=== PATIENT | male | born 1955 | race African-American/Black ===

== ENCOUNTER 2018-10-19 13:03 | Inpatient (IN) | payer OTHER ==
[2018-10-19] VITALS (21 sets, daily range): BP systolic 60–150; BP diastolic 15–95
[~2018-10-19] VITALS: Ht 177.8 cm; Wt 104.3 kg
--- NOTE | 2018-10-19 13:05 | NUR ---
ED Nurse Note: Pt BIBA from home due to cardiac arrest, pt was found unconscious at home with agonal breathing and no pulse. Per [employer] solutions architect, Epinephrine x1 given. CPR started @ 1245 in [facility] ER, 4 dosages of Epinephrine given per ERMD Dr. Yepez. Intubation @ 1258, size 7.5, 27 at lips. Pt on mechanical ventilator setting: A/C mode, [place] volumne 600, PEEP 5, FiO2 100% Central Line triple lumen inserted @1322 on R femoral. Site intact, dry. @1315 BP 58/27, weak pulses felt by RT and ERMD.
[2018-10-19] MEDS ORDERED: ZETIA10 MG ORAL (13:07)
[2018-10-19] MEDS ORDERED: SIMVASTATIN5 MG ORAL (13:07)
[2018-10-19] MEDS ORDERED: PROTONIX40 MG ORAL (13:07)
[2018-10-19] MEDS ORDERED: MULTIVITAMINS1 EAC2 ORAL (13:07)
[2018-10-19] MEDS ORDERED: COUMADIN1 MG ORAL (13:07)
[2018-10-19] MEDS ORDERED: ZANTAC150 MG ORAL (13:07)
[2018-10-19] MEDS ORDERED: ASPIRIN81 MG ORAL (13:07)
[2018-10-19] MEDS ORDERED: ROBAXIN500 MG PO (13:07)
[2018-10-19] MEDS ORDERED: Levophed 4mg/4mL Inj IV ONE (13:12)
[2018-10-19] MEDS ORDERED: Cefepime HCl 2 GM in NS 110 ML IV SCH (13:45)
[2018-10-19] MEDS ORDERED: Sodium Chloride 3,100 ML IVLG ONE (13:45)
[2018-10-19 13:47] LABS: HEMATOCRIT 23.3 % (42.0-52.0); MEAN CORPUSCULAR VOLUME 77 FL (80-99); PLATELET COUNT 174 K/UL (150-450); RED BLOOD COUNT 3.03 M/UL (4.70-6.10); RED CELL DISTRIBUTION WIDTH 15.4 % (11.6-14.8); WHITE BLOOD COUNT 10.9 K/UL (4.8-10.8)
[2018-10-19 13:49] LABS: HEMOGLOBIN 6.9 G/DL (14.2-18.0)
--- NOTE | 2018-10-19 13:55 | NUR ---
ED Nurse Note: Levophed drip standard dose started at 2mcg/min, administered and tiltrated per protocol.
[2018-10-19 14:12] LABS: INR 1.4 (0.9-1.1)
--- NOTE | 2018-10-19 14:14 | NUR ---
ED Nurse Note: BP 60/15, Levophed increased to 10mcg/min, ERMD aware.
[2018-10-19 14:16] LABS: ALANINE AMINOTRANSFERASE 72 U/L (12-78); ALBUMIN/GLOBULIN RATIO 0.6 (1.0-2.7); ALKALINE PHOSPHATASE 133 U/L (46-116); ANION GAP 31 mmol/L (5-15); ASPARTATE AMINO TRANSFERASE 264 U/L (15-37); BILIRUBIN,TOTAL 0.4 MG/DL (0.2-1.0); BLOOD UREA NITROGEN 18 mg/dL (7-18); CALCIUM 9.4 MG/DL (8.5-10.1); CHLORIDE 111 MMOL/L (98-107); CKMB < 0.5 NG/ML (0.0-3.6); CREATINE KINASE 114 U/L (26-308); CREATININE 2.2 MG/DL (0.55-1.30); POTASSIUM 5.5 MMOL/L (3.5-5.1); SODIUM 149 MMOL/L (136-145)
--- NOTE | 2018-10-19 14:29 | Diagnostic Imaging Report ---
Indication: Dyspnea Comparison: None A single view chest radiograph was obtained. Findings: The NG tube is in the mid to distal esophagus and should either be removed or advanced much further. Endotracheal tube is 3 cm above the анна in good position. Mild basal atelectasis noted with low lung volumes. Cardiomegaly is present and mild. IMPRESSION: Nasogastric tube requires repositioning. Mild basal atelectasis
[2018-10-19 14:30] LABS: CARBON DIOXIDE 6 MMOL/L (21-32)
--- NOTE | 2018-10-19 14:30 | Emergency Room Report ---
History of Present Illness General Chief Complaint: CPR Source: EMS Present Illness HPI 63yo M Is brought in by EMS as a cardiac arrest, when they were called to his private home, they reported that he himself called and was complaining shortness of breath, when they arrived he was sitting in a chair barely awake minimally responsive, when they lay him down to assess and he was pulseless in PE a arrest, they initiated CPR, attempted I'll placement in the left tibia, and placed a Joshua airway and brought the patient in, they reported that they had returned was found to circulation with epi X2, and this is other brought him in. He did not have a pulse on our first check, but did have a narrow complex tachyarrhythmia on the monitor so we resumed CPR. Allergies: Coded Allergies: UNABLE TO ASSESS (Unverified , 10/19/18) pt full arrest no family present Patient History Limited by: medical condition Past Medical History: see triage record, unable to obtain Reviewed Nursing Documentation: PMH: Agreed; PSxH: Agreed Nursing Documentation-PMH Past Medical History: Deferred Review of Systems All Other Systems: limited - patient unresponsive gcs 3t Physical Exam Vital Signs Date Time Temp Pulse Resp B/P (MAP) Pulse Ox O2 Delivery O2 Flow Rate FiO2 10/19/18 12:57 0 0 0 Ambu-Bag 100 10/19/18 13:54 65/53 Sp02 EP Interpretation: reviewed, abnormal General Appearance: severe distress, other - unresponsive gcs 3t Head: normocephalic, atraumatic Eyes: bilateral eye other - 3mm poorly reactive bilateral pupils ENT: normal pharynx, uvula midline, moist mucus membranes, other - joshua airway in oropharynx Neck: normal inspection Respiratory: other - with BVM good chest rise, chest symmetrical, palpation of chest normal Cardiovascular #1: no edema, tachycardia Cardiovascular #2: 1+ carotid (R), 1+ carotid (L) Gastrointestinal: distended - and firm in epigastic region Rectal: deferred Genitourinary: normal inspection, penis normal, scrotum normal Musculoskeletal: other - L knee with effusion 2/2 IO line inserted into knee Neurologic: other - gcs 3T Skin: warm/dry Lymphatic: normal inspection Procedures Critical Care Time Critical Care Time 55 mins of critical care time excluding all procedures Central Line Central Line : Consent: Emergent Central Line Lumen: triple Maximal Sterile Barrier Tech: yes cap, yes mask, yes sterile gown, yes sterile gloves, yes large sterile sheet No Max Barrier Tech Because: emergency insertion Central Line Postion: femoral (R) Complications: none Central Line Post Position: sutured, good blood return Attempts: Other - 2 Patient Tolerated: Well Complications: None Progress Semi-sterile technique used due to patient being an active cardiac arrest, initial line placed, however removed afterwards due to brisk return of blood, concern for possible arterial placement, but ultrasound confirmed likely normal placement, but first headache of safety, this line was removed and another one placed in the same location without difficulty. Do not suspect line was however placed in the artery, no hematoma formation, and no arterial pulsatile blood return. CPR/Code Blue CPR/Code Blue Narrative Patient came in pulseless, apparently had [place] in the field, but this pulses 1 on initial check, but had a narrow complex tachyarrhythmia, we gave her IV fluids, resume CPR, the I'll line was placed in the joint so we placed a peripheral IV, and gave epi, patient had return of spontaneous ablation again here, remained in a narrow complex tachycardia arrhythmia, I place a central line, intubated the patient as he only had a Joshua airway, and it seems that once we are able to intubate the patient patient maintained pulses rather easily , and OG tube was placed to try to decompress the distended abdomen, and it did somewhat help, patient was placed on Levophed, IV fluids and then dopamine. Intubation Intubation : Consent: Emergent Intubation Method: orotracheal Tube Size (cm): 7.5 Breath Sounds after Intubation: equal Intubation Complications: no complications Attempts: One Patient Tolerated: Well Complications: None Medical Decision Making Diagnostic Impression: Primary Impression: For cardiopulmonary resuscitation ER Course Patient came in for what I suspect was a respiratory arrest primarily, since he is the one who called EMS and 911 and apparently his only complaint was shortness of breath, but this was to prior to EMS arrival. Had returned Wednesday circulation once I was able to intubate the patient and remove his Joshua airway, I suspect this is a primary respiratory code but there is noted to be 100% certain, his EKG showed a narrow complex rhythm the entire time, EKG showed A. fib, patient has medication bottles which were brought by EMS, which showed he is on medications for hypertension, high cholesterol, muscle relaxants , Cipro and Bactrim, and warfarin. Laboratory evaluation revealed a hemoglobin of 6.9, INR 1.4, and a severe metabolic acidosis, patient was placed on bicarbonate drip in addition to the dopamine, Levophed, broad-spectrum antibiotics. EKG Diagnostic Results EKG Time: 13:10 EP Interpretation: afib with rvr Rate: tachycardiac Rhythm: other - afib ST Segments: no acute changes ASA given to the pt in ED: No Rhythm Strip Diag. Results Rhythm Strip Time: 14:29 EP Interpretation: yes Rate: 119 Rhythm: no PVC's, other - afib Chest X-Ray Diagnostic Results Chest X-Ray Diagnostic Results : Chest X-Ray Ordered: Yes # of Views/Limited/Complete: 1 View Indication: Shortness of Breath EP Interpretation: Yes Interpretation: no consolidation, no effusion, no pneumothorax, no acute cardiopulmonary disease, other - ETT in place Impression: Other - ETT in place Electronically Signed by: Evelyn Calderon MD Last Vital Signs Date Time Temp Pulse Resp B/P (MAP) Pulse Ox O2 Delivery O2 Flow Rate FiO2 10/19/18 13:54 65/53 10/19/18 12:57 0 0 0 Ambu-Bag 100 Disposition: ADMITTED INPATIENT Condition: Critical Referrals: [facility]ERR[facility] (PCP) EVELYN CALDERON M.D Oct 19, 2018 14:30
[2018-10-19] MEDS ORDERED: DOPamine 400mg/250ml 250 ML IV SCH (14:45)
[2018-10-19] MEDS ORDERED: Sodium Bicarbonate 50ml Carp IV ONE (14:45)
--- NOTE | 2018-10-19 14:45 | NUR ---
ED Nurse Note: Dopamine drip started at 2mcg/kg/min on R Femoral IV site.
[2018-10-19] MEDS ORDERED: Sodium Bicarbonate 150 ML in D5W 1000ml 1,000 ML IV ONE (15:00)
--- NOTE | 2018-10-19 15:20 | NUR ---
NURSE NOTES: received pt from Abigail, ER nurse. Patient is obtunded, no response to deep pain or voice. Pin point pupils, non reactive to light. ETT to vent, 7.5/25cm at lip line, AC 22, TV 600, FIo2 100%, PEEP+5. Spo2 88%, RR 22. Right femoral TLC running levophed 30mcg/kg/hr, dopamine 2mcg/kg/hr, NaHCO3@250cc/hr. NGT in left nare, keep to advance per cxr results. will advance ngt and get another cxr. RAC 18G. Skin intact. Extremeties are cold to touch. 95.1 rectal temp. BP 95/63, HR 113. paged dr. barney for admission orders.
--- NOTE | 2018-10-19 15:25 | NUR ---
ED Nurse Note: Pt transfered to ICU to room 246-K on [facility] with portable oxygen, emergency box and belongings accompanied by RN, outer diameter technician and RT. No sign of acute distress
[2018-10-19] MEDS ORDERED: ASPIRIN EC325 MG ORAL (15:37)
[2018-10-19] MEDS ORDERED: Vasopressin 100 UNITS in NS 95 ML IV SCH (17:00)
[2018-10-19] MEDS ORDERED: Pantoprazole Inj IVP SCH (18:00)
[2018-10-19] MEDS ORDERED: Insulin Human Regular 100units/ml 3ml IV SCH (18:00)
[2018-10-19] MEDS ORDERED: Sodium Polystyrene Sulfonate Enema RECTAL SCH (18:00)
--- NOTE | 2018-10-19 18:02 | History & Physical ---
History and Physical History & Physicial History and Physical HPI Patient is a 63yo male admitted in full cardiac arrest from the community. He has a history of Congestive Heart Failure, Atrial Fibrillation, Hypertension, Hyperlipidemia. Prior to arrest was complaining shortness of breath, noted by EMT to be pulseless in PEA arrest, Coded in ED, Intubated, central line inerted , NGT in mid esophagus - removed in ICU and a new NGT inserted. On high dose pressors, noted to be significantly anemia, s/p TFN in ED. Allergies: UNABLE TO ASSESS Past Medical History: Congestive Heart Failure, Atrial Fibrillation, Hypertension, Hyperlipidemia Physical Exam Vital Signs Date Time Temp Pulse Resp B/P (MAP) Pulse Ox O2 Delivery O2 Flow Rate FiO2 10/19/18 12:57 0 0 0 Ambu-Bag 100 10/19/18 13:54 65/53 General Appearance: sedated on ventilator - unresponsive Head: normocephalic, atraumatic Eyes: bilateral eye other - 3mm poorly reactive bilateral pupils, divergent gaze ENT: normal pharynx, uvula midline, moist mucus membranes, ETT Neck: normal inspection Respiratory: other - with BVM good chest rise, chest symmetrical, palpation of chest normal Cardiovascular: HS1, HS2, irregular, no edema, tachycardia Gastrointestinal: mild distention - and firm in epigastic region Rectal: deferred Genitourinary: normal inspection Musculoskeletal: some swelling L knee Neurologic: other - gcs 3T Skin: warm/dry Lymphatic: normal inspection Impression: Cardiac Arrest - community Severe Hypotension Hyperkalemia BRAVO Possible Sepsis Anemia Congestive Heart Failure Atrial Fibrillation Hypertension Hyperlipidemia Plan IV Pressors, MAP >65 IV Fluids TFN PRN Repeat CBC/BMP/Coags after TFN IV Insulin and D50 Kayexalate [place] Protonix Monitor Labs NGT low intermittent suction IV Antibiotics - Cefepime and Vancomycin Cardiology Consultation Renal Consultation Neurology Consultation AC, VC, increase RR 22.min, repeat ABG DNAR, d/w patients CXR/KUB to asess NGT Poor Prognosis EKG Afib with rvr Rate: tachycardiac Rhythm: other - afib ST Segments: no acute changes Chest X-Ray: no consolidation, basal atelectasis, no effusion, no pneumothorax , no acute cardiopulmonary disease, other - ETT in place Impression: Other - ETT in place Benjie Thomas MD Oct 19, 2018 18:02
--- NOTE | 2018-10-19 18:07 | NUR ---
CASE MANAGEMENT: REVIEW 63/M BIBA FROM HOME CC: SOB . CPR SI: FULL CARDIAC ARREST HR 0 RR 0 O2 SAT 0 AMBU-BAG 100 HR 154 BP 65/53 SAT 100% MECH VENT FIO2 100 H/H 6.9/23.3 K 5.5 ABG: PH <6.716 PCO2 34.8 PO2 228.9 IS: LEVOPHED IV X1 NS IVF BOLUS X1 SODIUM BICARB IV X1 PATIENT ADMITTED TO ICU 10/19/2018 DCP: PATIENT IS FROM HOME
--- NOTE | 2018-10-19 18:35 | NUR ---
NURSE NOTES: Patient went into bradycardia then into asystole. No palpable pulse or by doppler. Code blue was called. Patient reached ROSC at 17:29, See code paper for details. then went into bradycardia again at 18:46. , Mari Do was informed and requested to change code status to DNR. DNR form signed. Patient went into asystole. Dr. Dow at bedside to pronounce time of at 181.
--- NOTE | 2018-10-19 19:28 | NUR ---
HAND-OFF: Report given to PRECIOUS [place].
[2018-10-19] MEDS ORDERED: Sodium Bicarbonate 8.4% 50ml Inj ONE (20:31)
--- NOTE | 2018-10-19 21:52 | Emergency Room Report ---
History of Present Illness General Chief Complaint: CPR Source: Significant Other Present Illness Allergies: Coded Allergies: UNABLE TO ASSESS (Unverified , 10/19/18) pt full arrest no family present Nursing Documentation-[facility] Past Medical History Deferred: Patient Unconscious Past Medical History: Deferred Physical Exam Vital Signs Date Time Temp Pulse Resp B/P (MAP) Pulse Ox O2 Delivery O2 Flow Rate FiO2 10/19/18 06:15 117/68 10/19/18 12:57 0 0 0 Ambu-Bag 100 10/19/18 15:46 95.1 Procedures Critical Care Time Critical Care Time i. I feel this is a highly complex case requiring extensive working including EKG/Rhythm strip, Xray/CT/US, Blood/urine lab work, repeat exams while in ED, and administration of strong opiates/narcotics for pain control, admission to hospital or close patient follow up. Total time: 30 min bedside evaluation and treatment excludes procedures (EKG). Reason for critical care: cardiac arrest Possible complications: hypotension, hypertension, MD, shock, arrhythmias, metabolic acidosis, end organ damage, respiratory failure. Interventions: CPR, ACS medications, discussion with family Course: Patient in asystole. Patient already intubated and on and two pressors. After given multiple rounds of epinephrine and chest compressions patient regained pulses. I discussed prognosis with . She understands that prognosis is poor Consultations: nursing staff, EMS, family Performed by: Dr Pollock Tolerated well condition = critical j. because of unstable vital signs this patient had a condition that could potentially threaten life or limb. I feel this is a critical patient who required my full attention while patient was considered critical. Total Critical Care Time excluding procedures was greater than 35 minutes CPR/Code Blue CPR/Code Blue Narrative see code blue sheet for full narrative Medical Decision Making Diagnostic Impression: Primary Impression: For cardiopulmonary resuscitation ER Course I was called to ICU for this CODE BLUE. Patient developed into asystole. Patient already intubated. He is currently on 2 pressors. Was admitted earlier today after cardiac arrest. After chest compressions and multiple rounds of medication we regained pulses. I discussed findings with . She states patient has been currently fighting prostate cancer for several years. I explained that prognosis is poor for the patient and she states that she understands. She will keep this in consideration regarding patient's advanced directive going forward Last Vital Signs Date Time Temp Pulse Resp B/P (MAP) Pulse Ox O2 Delivery O2 Flow Rate FiO2 10/19/18 17:30 120 93/44 (60) 10/19/18 17:28 95.1 10/19/18 16:58 17 Mechanical Ventilator 100 10/19/18 16:46 61 Status: improved Disposition: ADMITTED INPATIENT Condition: Critical Referrals: [facility] (PCP) Jose G Pollock MD Oct 19, 2018 21:52
--- NOTE | 2018-10-20 07:15 | Consultation ---
DATE OF CONSULTATION: 10/19/2018 NOTE: VERY POOR AUDIO NEUROLOGICAL CONSULTATION CHIEF COMPLAINT: This 63-year-old probably right-handed male with a history of congestive heart failure, atrial fibrillation, hypertension, hyperlipidemia, and prostate cancer with metastasis. He was admitted post cardiac arrest in the community. The patient was at his at home, the EMS was called by the patient because of shortness of breath. He was sitting in a chair, barely awake when they found him, they his pulse, he was . . Laboratory data, . AST , alkaline phos . Liver function is normal. Troponin is . ProTime is 16 with an INR of 1.4. . Chest x-ray revealed mild cardiomegaly. Mild basilar atelectasis. Nasogastric tube required repositioning. I was asked to see the patient in neurologic consultation. PAST MEDICAL HISTORY: See above. PHYSICAL EXAMINATION: VITAL SIGNS: The patient is in the intensive care unit, intubated, not responding to pain or voice, his eyes are open. Pulse is 48. Blood pressure is 65/52. He is on the respirator at . HEENT: Examination of head is fairly unremarkable. NECK: Lateral movement of the neck was better than the anterior posterior movement of the neck. LUNGS: Breath sounds at bases are intact. Chest is clear. CARDIOVASCULAR: The heart tones were distant. ABDOMEN: He had distention of the abdomen. EXTREMITIES: Swelling in the left knee. NEUROLOGIC: Mental status and vision, eyes were open, he did not respond to voice or recognize his or responding to the pain. CRANIAL NERVE EXAMINATION: CRANIAL NERVES III, IV, AND : Eyes were slightly asymmetric, revealed no movement. The pupils were approximately 5 mm, round and nonreactive. CRANIAL NERVE V: He had absent corneals bilaterally. CRANIAL NERVE VII: There is no on nasal stimulation. CRANIAL NERVE VIII THROUGH XII: Could not be tested. MUSCLE EXAMINATION: He has quadriplegia. REFLEXES: Zero in the upper and lower extremities. COORDINATION: testing for Babinski response. SENSORY EXAM: There was no response to pain. IMPRESSION: The patient has cortical and subcortical encephalopathy. Apparently had pinpoint pupils when he came in, maybe the epinephrine was given to increase his pupillary size, but in any event, there was no reaction. The patient is DNR, therefore, I am going to sign off this case. Tentatively should wait at least 24 hours up to 3 days and see in the ER to see if he revives somewhat. PLAN: Call me back if you need evaluation. Yonatan Hair MD DR: Gloria JOB#: [id number] CC:
--- NOTE | 2018-10-20 09:42 | Discharge Summary ---
Discharge Summary Discharge Summary _ DATE OF ADMISSION: 10/19/2018 DATE OF DISCHARGE: 10/19/2018 BRIEF SUMMARY: Vision is a 63-year-old male, with medical history significant for CHF, atrial fibrillation, hypertension, hyperlipidemia and prostate CA with metastases, who was brought in by EMS, status post cardiac arrest at his private home. They reported that he himself called and was complaining of shortness of breath. When they arrived, he was sitting in a chair barely awake and minimally responsive. They laid him down to assess and he was noted he was pulseless and in cardiopulmonary arrest. They initiated CPR and was given epinephrine x2. He had return of spontaneous circulation. On arrival to ED, he did not have a pulse on the first check, but monitor showed narrow complex tachyarrhythmia. CPR was resumed. Was given IV bolus and a central line was inserted to the right femoral vein. He was given epinephrine. Patient had return of spontaneous circulation. He was orally intubated. OG tube was inserted to decompress the distended abdomen. He was started on IV pressors. He was given sodium bicarb. Blood work showed hemoglobin 6.9, hematocrit 23. INR 1.4. Sodium 149, potassium 5.5, chloride 111. Carbon dioxide 6 anion gap 31. BUN 18, creatinine 2.2. Lactic acid was 22. Troponin was negative. He was then admitted to ICU. Patient was started on 1 unit packed RBC blood transfusion. NGT was repositioned. He was started on cefepime. He was continued on vent support and two IV pressors. Despite being on 2 IV pressors, patient went into CODE BLUE. Patient regained pulses after multiple rounds of medication and chest compressions. He was seen by neurologist. Patient had cortical and subcortical encephalopathy with pinpoint pupils. Per , CODE STATUS was changed to DNR. Patient continued to decline and eventually . FINAL DIAGNOSES: Cardiopulmonary arrest Status post cardiopulmonary resuscitation Severe metabolic acidosis Cortical and subcortical encephalopathy Severe hypotension Hyperkalemia Acute kidney injury Possible sepsis Anemia requiring blood transfusion Congestive heart failure Atrial fibrillation Hyperlipidemia DISPOSITION: Patient . I have been assigned to complete a discharge summary on this account, I was not involved with the patient's management. Janina Vidales NP Oct 20, 2018 09:42
--- NOTE | 2018-10-20 12:47 | Diagnostic Imaging Report ---
Indication: Dyspnea Comparison: 10/19/2018 A single view chest radiograph was obtained. Findings: Nasogastric tube is been advanced and is in good position within the stomach. Endotracheal tube is unchanged in position and satisfactory. IMPRESSION: NG tube in good position. No change otherwise
--- NOTE | 2018-10-20 13:00 | Progress Note ---
DATE: 10/19/2018 SUBJECTIVE: The patient is a 63-year-old male, who presented to the hospital on full arrest. He was admitted to the intensive care unit following resuscitation and remained on ventilator support. He remained unresponsive, subsequently recurring bradycardic arrests were noted with resuscitation successful. The patient had normal troponin levels noted. OBJECTIVE: VITAL SIGNS: Blood pressure 65/50, pulse 120, respiratory 18, afebrile. LUNGS: Bilateral breath sounds. Orally intubated. Mechanically ventilated. HEART: Regular rhythm rate. Normal S1, S2. ABDOMEN: Distended with palpable masses. EXTREMITIES: No edema. There is mottling noted. IMPRESSION: 1. Cardiac arrest. 2. Sepsis with shock. 3. Lung mass. 4. Paroxysmal atrial fibrillation. PLAN: 1. Pressor support hydration discussion with patient 's regarding advance directives, yielded DNI, DNR, empiric antibiotics. 2. Followup laboratory studies and correction of electrolyte abnormalities based on findings. 3. Following evaluation, the patient developed bradycardia and asystole, he was pronounced by me at 6:12 p.m. The patient's was at bedside and notified by me. Benjie Dow M.D. DR: Flip JOB#: [id number] CC:
== END 2018-10-19 20:45 | disposition expired | DRG 196 ==
LOC: EDBD 13:03 → EMR 13:48 → ICU 14:25 → EDBEDREQ 15:06
PROC: 5A1935Z Respiratory Ventilation, Less than 24 Consecutive Hours (ICD-10-PCS; principal; 2018-10-19)
PROC: 30233N1 Transfusion of Nonautologous Red Blood Cells into Peripheral Vein, Percutaneous Approach (ICD-10-PCS; 2018-10-19)
PROC: 5A12012 Performance of Cardiac Output, Single, Manual (ICD-10-PCS; 2018-10-19)
PROC: 06HM33Z Insertion of Infusion Device into Right Femoral Vein, Percutaneous Approach (ICD-10-PCS; 2018-10-19)
PROC: 0BH17EZ Insertion of Endotracheal Airway into Trachea, Via Natural or Artificial Opening (ICD-10-PCS; 2018-10-19)
DX: I46.9 Cardiac arrest, cause unspecified (principal); G93.49 Other encephalopathy; A41.9 Sepsis, unspecified organism; N17.9 Acute kidney failure, unspecified; C79.9 Secondary malignant neoplasm of unspecified site; E87.2 Acidosis; I95.9 Hypotension, unspecified; I11.0 Hypertensive heart disease with heart failure; E87.5 Hyperkalemia; C61 Malignant neoplasm of prostate; Z66 Do not resuscitate; D64.9 Anemia, unspecified; I48.91 Unspecified atrial fibrillation; E78.5 Hyperlipidemia, unspecified; R91.8 Other nonspecific abnormal finding of lung field
CPT/HCPCS: 36415; 36600; 71045; 74018; 80053; 82550; 82553; 82962; 83605; 83690; 83880; 84484; 85007; 85025; 85610; 85730; 86850; 86900; 86901; 86920; 87040; 93005; 96365; 96367; 96368; 99291; J0171